=== PATIENT | female | born 1950 | race Hispanic/Latino ===

== ENCOUNTER 2018-06-25 12:11 | Emergency (ER) | payer OTHER ==
--- OUTSIDE RECORDS SUMMARY | 2018-06-25 12:19 | XMS REPORT ---
:1950 Author Organization eClinicalWorks Care Team Providers Name Role Phone Carin Wright Provider Role Unavailable Allergies, Adverse Reactions, Alerts Substance Reaction Event Type N.K.D.A. Info Not Available Non Drug Allergy Problems Problem Type Condition Code Onset Dates Condition Status Assessment Pain in right leg M79.604 Active Assessment Chest wall pain R07.89 Active Assessment Pain of left leg M79.605 Active Assessment Varicose veins of bilateral lower I83.893 Active extremities with other complications Problem Edema R60.9 Active Problem Pain of left leg M79.605 Active Problem Hyperlipidemia E78.5 Active Problem Chest wall pain R07.89 Active Problem Varicose veins of bilateral lower I83.893 Active extremities with other complications Problem Pain in right leg M79.604 Active Medications Medication Code Code Instructions Start End Status Dosage System Date Date Garlic NDC 97799944181 1000 MG Orally Active as directed Gabapentin NDC 13430136856 300 MG Orally Active 1 capsule Twice a day Tylenol # 3 NDC 0 300/30mg PO BID Active one tab PRN Lovastatin ND 54402918406 20 MG Orally Active 1 tablet Once a day with the evening meal Multivitamin ND 63660307025 - Orally Active as directed Adult Results No Known Results Summary Purpose eClinicalWorks Submission
[2018-06-25 13:40] LABS: Urine Blood NEGATIVE (NEG); Urine Glucose NEGATIVE (NEG); Urine Protein NEGATIVE (NEG); Urine Specific Gravity 1.015 (1.005-1.030)
[2018-06-25 13:59] LABS: Urine Bacteria <20 /HPF (<20); Urine RBC <5 /HPF (NONE SEEN)
[2018-06-25 14:00] LABS: Urine Amorphous Sediment 1+ /HPF (NONE SEEN); Urine Culture Reflex Order NOT NEEDED; Urine Mucus 2+ /HPF (NONE SEEN)
[2018-06-25 14:02] LABS: Absolute Monocytes 0.4 K/uL (0.1-1.3); Absolute Neutrophil 2.5 K/uL (1.8-8.0); Basophils % 0.8 % (0-1.3); Eosinophils % 6.3 % (0-4.4); Hematocrit 41.4 % (36.0-45.0); Lymphocytes % 38.1 % (15.3-44.8); MPV 9.3 fL (7.6-11.3); RBC Red Blood Cell Count 4.22 M/uL (3.86-4.86)
[2018-06-25] MEDS ORDERED: FENTANYL CITR 100 MCG/2 ML ONE (14:13)
[2018-06-25] MEDS ORDERED: ONDANSETRON 4 MG/2 ML VIAL ONE (14:14)
[2018-06-25 14:20] LABS: AST/SGOT 23 U/L (15-37); BUN Blood Urea Nitrogen 9 mg/dL (7-18); Bicarbonate 28 mmol/L (21-32); Glucose Level 104 mg/dL (74-106); Potassium 3.8 mmol/L (3.5-5.1); Sodium Level 143 mmol/L (136-145)
[2018-06-25 14:21] LABS: ALT/SGPT 41 U/L (12-78); Albumin 3.5 g/dL (3.4-5.0); Alkaline Phosphatase 95 U/L (45-117); Bilirubin Direct < 0.1 mg/dL (0-0.2); Bilirubin Total 0.3 mg/dL (0.2-1.0); Lipase 499 U/L (73-393); Protein, Total 6.9 g/dL (6.4-8.2)
--- NOTE | 2018-06-25 14:49 | RAD REPORT ---
EXAM DESCRIPTION: CTAbdomen Pelvis W Contrast - 06/25/2018 2:34 pm CLINICAL HISTORY: Abdominal pain. R side abd pain COMPARISON: No comparisons TECHNIQUE: Biphasic CT imaging of the abdomen and pelvis was performed with 100 ml non-ionic IV cont rast. All CT scans are performed using dose optimization technique as appropriate and may include automated exposure control or mA/KV adjustment according to patient size. FINDINGS: The lung bases are clear. The liver contains an 11 mm cyst in the left lobe. No aggressive liver lesion or intrahepatic biliary dilatation seen. The gallbladder contains multiple small gallstones. The spleen, adrenal glands and kidneys are within normal limits. No bowel obstruction, free air, free fluid or abscess. Several focal ventral hernia are present conta ining small sections of nonobstructive small bowel. A larger more complex inferior ventral hernia is present containing several loops of nonobstructive small bowel. The appendix is normal. No evidence of significant lymphadenopathy. Lumbosacral degenerative changes are present. IMPRESSION: Cholelithiasis is noted. Multiple ventral hernia are present containing nonobstructed small bowel loops. The largest hernia is inferiorly located below the level of the umbilicus.
--- NOTE | 2018-06-25 16:43 | ER ---
Nurse's Notes [facility] Name: Cyn Kathleen Age: 68 yrs Sex: Female : 1950 Arrival Date: 06/25/2018 Time: 12:12 Bed 28 Private MD: Diagnosis: Acute Right Sided Abdominal pain;Ventral Hernias Presentation: 06/25 12:16 Presenting complaint: Patient states: thi morning, i started having pain on the R side hj of my upper and lower abdomen, denies fever and chills, denies N/V; reports radiating pain to the R lower back;. Transition of care: patient was not received from another setting of care. Onset of symptoms was June 25, 2018. Risk Assessment: Do you want to hurt yourself or someone else? Patient reports no desire to harm self or others. Initial Sepsis Screen: Does the patient meet any 2 criteria? No. Patient's initial sepsis screen is negative. Does the patient have a suspected source of infection? No. Patient's initial sepsis screen is negative. Care prior to arrival: None. 12:16 Method Of Arrival: Ambulatory 12:16 Acuity: MONET 3 hj Triage Assessment: 12:20 General: Appears in no apparent distress. uncomfortable, Behavior is calm, cooperative, hj appropriate for age. Pain: Complains of pain in abdomen. GI: Reports lower abdominal pain, upper abdominal pain. Historical: - Allergies: 12:19 No Known Allergies; hj - Home Meds: 12:19 gabapentin 300 mg oral cap 1 cap twice a day [Active]; hj - PMHx: 12:19 None; hj - PSHx: 12:19 ; Appendectomy; Hernia repair; hj - Immunization history:: Adult Immunizations up to date. - Social history:: Smoking status: Patient/guardian denies using tobacco, Patient/guardian denies using alcohol. - Ebola Screening: : Patient negative for fever greater than or equal to 101.5 degrees Fahrenheit, and additional compatible Ebola Virus Disease symptoms Patient denies exposure to infectious person Patient denies travel to an Ebola-affected area in the 21 days before illness onset. - Family history:: not pertinent. - Hospitalizations: : No recent hospitalization is reported. Screenin:20 Abuse screen: Denies threats or abuse. Denies injuries from another. Nutritional hj screening: No deficits noted. Tuberculosis screening: No symptoms or risk factors identified. Fall Risk None identified. Assessment: 12:20 GI: Bowel sounds Abd is soft. hj 13:10 General: Appears in no apparent distress. Behavior is calm, cooperative. Pain: iw Complains of pain in right upper quadrant and right lower quadrant Pain. Neuro: Level of Consciousness is awake, alert, obeys commands, Oriented to person, place, time, situation, Moves all extremities. Full function. Cardiovascular: Patient's skin is warm and dry. Respiratory: Respiratory effort is even, unlabored, Respiratory pattern is regular. GI: Abdomen is non-distended, obese, Bowel sounds present X 4 quads. Abd is soft X 4 quads Abdomen is tender to palpation in right upper quadrant and right lower quadrant Reports lower abdominal pain, upper abdominal pain, Patient currently denies diarrhea, vomiting. : Denies burning with urination. Derm: Skin is intact, is healthy with good turgor. Musculoskeletal: Range of motion: intact in all extremities. 14:09 Reassessment: pt medicated for pain 7/10, pt c/o tightness in RLQ, pain in RLQ, pt iw lying in bed, warm blanket given, call light within reach, VSS. 16:54 Reassessment: Patient denies pain at this time. Patient states feeling better. Patient mg2 states symptoms have improved. Vital Signs: 12:21 BP 135 / 73; Pulse 73; Resp 18; Temp 97.4(O); Pulse Ox 98% on R/A; Weight 81.65 kg; hj Height 5 ft. 1 in. (154.94 cm); 14:08 BP 149 / 72; Pulse 65; Resp 16; Pulse Ox 95% on R/A; Pain 7/10; iw 15:02 BP 154 / 84; Pulse 63; Resp 18; Pulse Ox 99% on R/A; mg2 12:21 Body Mass Index 34.01 (81.65 kg, 154.94 cm) ED Course: 12:12 Patient arrived in ED. as 12:18 Triage completed. hj 12:20 Arm band placed on right wrist. hj 12:20 Patient has correct armband on for positive identification. Placed in gown. Bed in low hj position. Call light in reach. Side rails up X 1. 12:56 Jamila Herrera, RN is Primary Nurse. iw 13:00 Urine collected: clean catch specimen, clear, cielo colored, Amount Voided: 100mL. jp3 13:04 Ken Newman MD is Attending Physician. wa 13:18 Urine Microscopic Only Sent. jp3 13:45 Radiology exam delayed due to lab results not completed at this time. (BUN/Creatinine). j6 13:48 Initial lab(s) drawn, by wa, sent to lab. Inserted saline lock: 20 gauge in left iw antecubital area, using aseptic technique. Blood collected. 14:[address] jg6 14:35 CT Abd/Pelvis - W/Contrast In Process Unspecified. EDMS 15:01 No provider procedures requiring assistance completed. mg2 15:29 Jose Khan, LORNA is Primary Nurse. mg2 16:41 Jose Antonio Thompson MD is Referral Physician. wa 16:54 IV discontinued, intact, bleeding controlled, No redness/swelling at site. Pressure mg2 dressing applied. Administered Medications: 14:08 Drug: Zofran 4 mg Route: IVP; Site: left antecubital; iw 16:54 Follow up: Response: No adverse reaction; Marked relief of symptoms mg2 14:08 Drug: fentaNYL (PF) 50 mcg Route: IVP; Site: left antecubital; iw 16:54 Follow up: Response: No adverse reaction; Marked relief of symptoms mg2 Outcome: 16:42 Discharge ordered by . wy 17:00 Discharged to home ambulatory. mg2 17:00 Condition: stable 17:00 Discharge instructions given to patient, Instructed on discharge instructions, follow up and referral plans. medication usage, Demonstrated understanding of instructions, follow-up care, medications, Prescriptions given X 2. 17:01 Patient left the ED. mg2 Signatures: Dispatcher [employer] EDMS Kendal Manjarrez as Jamila Herrera, LORNA ROTHMAN Abrahan Maxwell RN RN Ken Newman MD MD wy Jose Khan RN RN [facility] Luis Alberto Calix 3 Veronica Shelton jg6 Corrections: (The following items were deleted from the chart) 12:23 12:21 Pulse 73bpm; Resp 18bpm; Pulse Ox 98% RA; Temp 97.4F Oral; 81.65 kg; Height 5 ft. hj 1 in.; BMI: 34.0; hj 15:04 15:02 Pulse 63bpm; Resp 18bpm; Pulse Ox 99% RA; mg2 mg2
--- NOTE | 2018-06-25 16:43 | EDPHYS ---
Physician Documentation [facility] Name: Cyn Kathleen Age: 68 yrs Sex: Female : 1950 Arrival Date: 06/25/2018 Time: 12:12 Bed 28 Private MD: ED Physician Ken Newman HPI: 06/25 16:36 This 68 yrs old Female presents to ER via Ambulatory with complaints of wa Abdominal Pain. 16:36 The patient presents with abdominal pain right side. Onset: The symptoms/episode wa began/occurred today. The symptoms do not radiate. Associated signs and symptoms: none. The symptoms are described as achy. Modifying factors: The symptoms are alleviated by nothing, the symptoms are aggravated by nothing. Severity of pain: At its worst the pain was moderate in the emergency department the pain is unchanged. The patient has not experienced similar symptoms in the past. The patient has not recently seen a physician. Historical: - Allergies: 12:19 No Known Allergies; hj - Home Meds: 12:19 gabapentin 300 mg oral cap 1 cap twice a day [Active]; hj - PMHx: 12:19 None; hj - PSHx: 12:19 ; Appendectomy; Hernia repair; hj - Immunization history:: Adult Immunizations up to date. - Social history:: Smoking status: Patient/guardian denies using tobacco, Patient/guardian denies using alcohol. - Ebola Screening: : Patient negative for fever greater than or equal to 101.5 degrees Fahrenheit, and additional compatible Ebola Virus Disease symptoms Patient denies exposure to infectious person Patient denies travel to an Ebola-affected area in the 21 days before illness onset. - Family history:: not pertinent. - Hospitalizations: : No recent hospitalization is reported. ROS: 16:37 Constitutional: Negative for fever, chills, and weight loss, Eyes: Negative for injury, wa pain, redness, and discharge, ENT: Negative for injury, pain, and discharge, Neck: Negative for injury, pain, and swelling, Cardiovascular: Negative for chest pain, palpitations, and edema, Respiratory: Negative for shortness of breath, cough, wheezing, and pleuritic chest pain, Back: Negative for injury and pain, : Negative for injury, bleeding, discharge, and swelling, MS/Extremity: Negative for injury and deformity, Skin: Negative for injury, rash, and discoloration, Neuro: Negative for headache, weakness, numbness, tingling, and seizure, Psych: Negative for depression, anxiety, suicide ideation, homicidal ideation, and hallucinations. 16:37 Abdomen/GI: Positive for abdominal pain, Negative for nausea, vomiting, and diarrhea. Exam: 16:37 Constitutional: This is a well developed, well nourished patient who is awake, alert, wa and in no acute distress. Head/Face: Normocephalic, atraumatic. Eyes: Pupils equal round and reactive to light, extra-ocular motions intact. Lids and lashes normal. Conjunctiva and sclera are non-icteric and not injected. Cornea within normal limits. Periorbital areas with no swelling, redness, or edema. ENT: Nares patent. No nasal discharge, no septal abnormalities noted. Tympanic membranes are normal and external auditory canals are clear. Oropharynx with no redness, swelling, or masses, exudates, or evidence of obstruction, uvula midline. Mucous membranes moist. Neck: Trachea midline, no thyromegaly or masses palpated, and no cervical lymphadenopathy. Supple, full range of motion without nuchal rigidity, or vertebral point tenderness. No Meningismus. Chest/axilla: Normal chest wall appearance and motion. Nontender with no deformity. No lesions are appreciated. Cardiovascular: Regular rate and rhythm with a normal S1 and S2. No gallops, murmurs, or rubs. Normal PMI, no JVD. No pulse deficits. Respiratory: Lungs have equal breath sounds bilaterally, clear to auscultation and percussion. No rales, rhonchi or wheezes noted. No increased work of breathing, no retractions or nasal flaring. Back: No spinal tenderness. No costovertebral tenderness. Full range of motion. Skin: Warm, dry with normal turgor. Normal color with no rashes, no lesions, and no evidence of cellulitis. MS/ Extremity: Pulses equal, no cyanosis. Neurovascular intact. Full, normal range of motion. Neuro: Awake and alert, GCS 15, oriented to person, place, time, and situation. Cranial nerves II-XII grossly intact. Motor strength 5/5 in all extremities. Sensory grossly intact. Cerebellar exam normal. Normal gait. Psych: Awake, alert, with orientation to person, place and time. Behavior, mood, and affect are within normal limits. 16:37 Abdomen/GI: Inspection: scar(s), are noted in the abdomen, Bowel sounds: normal, Palpation: soft, in all quadrants, moderate abdominal tenderness, in the right upper quadrant and right lower quadrant. Vital Signs: 12:21 BP 135 / 73; Pulse 73; Resp 18; Temp 97.4(O); Pulse Ox 98% on R/A; Weight 81.65 kg; hj Height 5 ft. 1 in. (154.94 cm); 14:08 BP 149 / 72; Pulse 65; Resp 16; Pulse Ox 95% on R/A; Pain 7/10; iw 15:02 BP 154 / 84; Pulse 63; Resp 18; Pulse Ox 99% on R/A; mg2 12:21 Body Mass Index 34.01 (81.65 kg, 154.94 cm) MDM: 13:04 Patient medically screened. il 16:38 Differential diagnosis: appendicitis, cholecystitis, Cholelithiasis, non-specific abd wa pain, pancreatitis, Pyelonephritis, Ureterolithiasis, urinary tract infection. 16:39 Data reviewed: vital signs, nurses notes. Test interpretation: by ED physician or il midlevel provider: labs noted with lipase of 499. otherwise wnl. . Test interpretation: by ED physician or midlevel provider: CT: multiple ventral hernias. no obstruction. Response to treatment: the patient's symptoms have markedly improved after treatment. 16:40 ED course: suspect pain due to ventral hernia. tender within the location of abd wall wa scars. no obstruction on CT however. pain imrpoved. 06/25 12:22 Order name: Urine Microscopic Only; Complete Time: 14:57 06/25 13:27 Order name: Urine Dipstick--Ancillary (enter results); Complete Time: 14:57 06/25 13:41 Order name: Basic Metabolic Panel il 06/25 13:41 Order name: CBC with Diff; Complete Time: 14:56 il 06/25 14:56 Interpretation: RDW 13.7. il 06/25 13:41 Order name: Hepatic Function il 06/25 13:41 Order name: Lipase il 06/25 12:22 Order name: Urine Dipstick-Ancillary (obtain specimen); Complete Time: 13:18 06/25 13:41 Order name: IV Saline Lock; Complete Time: 14:08 il 06/25 13:41 Order name: CT Abd/Pelvis - W/Contrast; Complete Time: 14:57 [place] 06/25 13:41 Order name: Basic Metabolic Panel; Complete Time: 14:57 [facility] 06/25 13:41 Order name: Liver (Hepatic) Function; Complete Time: 16:18 [facility] 06/25 13:41 Order name: Lipase; Complete Time: 14:56 [facility] 06/25 13:41 Order name: Labs collected and sent; Complete Time: 14:08 il Administered Medications: 14:08 Drug: Zofran 4 mg Route: IVP; Site: left antecubital; iw 16:54 Follow up: Response: No adverse reaction; Marked relief of symptoms mg2 14:08 Drug: fentaNYL (PF) 50 mcg Route: IVP; Site: left antecubital; iw 16:54 Follow up: Response: No adverse reaction; Marked relief of symptoms mg2 Disposition: 06/25/18 16:42 Discharged to Home. Impression: Acute Right Sided Abdominal pain, Ventral Hernias. - Condition is Stable. - Discharge Instructions: Abdominal Pain, Adult, [id number], Ventral Hernia. - Prescriptions for Zofran 4 mg Oral Tablet - take 1 tablet by ORAL route every 12 hours As needed; 20 tablet. Tramadol 50 mg Oral Tablet - take 1 tablet by ORAL route every 8 hours as needed; 12 tablet. - Medication Reconciliation Form, Thank You Letter, Antibiotic Education, Prescription Opioid Use form. - Follow up: Jose Antonio Thompson MD; When: 1 - 2 days; Reason: Recheck today's complaints. - Problem is new. - Symptoms have improved. - Notes: take medication as prescribed. see the surgeon prescribed you for further evalaution of hernias on the abdominal wall. return here if any worsening pain or concerns immediately Signatures: Dispatcher [employer] EDMS Jamila Herrera RN RN Abrahan Maxwell RN RN Ken Newman MD MD wa Gardose, Michele, RN RN mg2 Corrections: (The following items were deleted from the chart) 17:01 16:42 06/25/2018 16:42 Discharged to Home. Impression: Acute Right Sided Abdominal mg2 pain; Ventral Hernias. Condition is Stable. Forms are Medication Reconciliation Form, Thank You Letter, Antibiotic Education, Prescription Opioid Use. Follow up: Jose Antonio Thompson; When: 1 - 2 days; Reason: Recheck today's complaints. Problem is new. Symptoms have improved. wa
== END 2018-06-25 17:01 | disposition home or self-care (01) ==
LOC: ER 12:11
DX: K43.9 Ventral hernia without obstruction or gangrene (principal)
CPT/HCPCS: 85025; 80048; 36415; 80076; 83690; 74177; 96375; 96374; 99284; Q9967; J3010; J2405; 81003; 81015

== ENCOUNTER 2018-07-18 07:26 | Observation (INO) | payer OTHER ==
--- OUTSIDE RECORDS SUMMARY | 2018-07-18 07:31 | XMS REPORT ---
[...] Status Dosage System Date Date Garlic NDC 98015224732 1000 MG Orally Active as directed Gabapentin NDC 13518752888 300 MG Orally Active 1 capsule Twice a day Tylenol # 3 NDC 0 300/30mg PO BID Active one tab PRN Lovastatin ND 49725382770 20 MG Orally Active 1 tablet Once a day with the evening meal Multivitamin ND 13334932651 - Orally Active as directed Adult Results No Known Results Summary Purpose eClinicalWorks Submission
--- OUTSIDE RECORDS SUMMARY | 2018-07-18 07:31 | XMS REPORT ---
:1950 Author Organization eClinicalWorks Care Team Providers Name Role Phone Jose Antonio Thompson Provider Role Unavailable Allergies, Adverse Reactions, Alerts Substance Reaction Event Type N.K.D.A. Info Not Available Non Drug Allergy Problems Problem Type Condition Code Onset Dates Condition Status Assessment Ventral hernia without obstruction K43.9 Active or gangrene Problem Hyperlipidemia E78.5 Active Problem Edema R60.9 Active Problem Abdominal pain, unspecified R10.9 Active abdominal location Problem Pain in right leg M79.604 Active Problem Chest wall pain R07.89 Active Problem Pain of left leg M79.605 Active Problem Varicose veins of bilateral lower I83.893 Active extremities with other complications Medications Medication Code Code Instructions Start End Date Status Dosage System Date Lovastatin ND 86639904798 20 MG Orally Active 1 tablet Once a day with the evening meal Gabapentin ND 33368997599 300 MG Orally Active 1 capsule Twice a day Tylenol # 3 NDC 0 300/30mg PO BID Active one tab PRN Multivitamin ND 48083689634 - Orally Active as directed Adult Tylenol # 3 NDC 0 300/30mg PO July Active one tab every 6 hrs 2018 Garlic ND 05489705550 1000 MG Orally Active as directed Results No Known Results Summary Purpose eClinicalWorks Submission
--- OUTSIDE RECORDS SUMMARY | 2018-07-18 07:31 | XMS REPORT ---
:1950 Author Organization eClinicalWorks Care Team Providers Name Role Phone Kyle Carin Provider Role Unavailable Allergies, Adverse Reactions, Alerts Substance Reaction Event Type N.K.D.A. Info Not Available Non Drug Allergy Problems Problem Type Condition Code Onset Dates Condition Status Assessment Abdominal pain, unspecified R10.9 Active abdominal location Assessment Hyperlipidemia E78.5 Active Assessment Pain in right leg M79.604 Active Assessment Pain of left leg M79.605 Active Assessment Varicose veins of bilateral lower I83.893 Active extremities with other complications Assessment Edema R60.9 Active Problem Hyperlipidemia E78.5 Active Problem Edema R60.9 Active Problem Abdominal pain, unspecified R10.9 Active abdominal location Problem Pain in right leg M79.604 Active Problem Chest wall pain R07.89 Active Problem Pain of left leg M79.605 Active Problem Varicose veins of bilateral lower I83.893 Active extremities with other complications Medications Medication Code Code Instructions Start End Date Status Dosage System Date Multivitamin [facility] 73050853967 - Orally Active as directed Adult Tylenol # 3 NDC 0 300/30mg PO July Active one tab every 6 hrs 2018 Tylenol # 3 NDC 0 300/30mg PO BID Active one tab PRN Lovastatin ND 97901117780 20 mg Orally Active 1 tablet Once a day with the evening meal Gabapentin ND 09191554277 300 MG Orally Active 1 capsule Twice a day Garlic ND 23602455602 1000 MG Orally Active as directed Results No Known Results Summary Purpose eClinicalWorks Submission
[2018-07-18] MEDS ORDERED: CEFAZOLIN/SWI 2gm 2 GM/20 ML SYR ONE (07:56)
[2018-07-18] MEDS ORDERED: Ringers Lactate 1,000 ML IV ONE ×3 (07:56→12:31)
[2018-07-18] MEDS ORDERED: PROPOFOL 200 MG/20 ML VIAL IV ONE (08:01)
[2018-07-18] MEDS ORDERED: MIDAZOLAM HCL 2 MG/2 ML INJ ONE (08:02)
[2018-07-18] MEDS ORDERED: LIDOCAINE 2% MPF 5 ML VIAL ONE (08:02)
[2018-07-18] MEDS ORDERED: ROCURONIUM 50 MG/5 ML VIAL IV ONE (08:02)
[2018-07-18] MEDS ORDERED: FENTANYL CITR 250 MCG/5 ML ONE (08:02)
[2018-07-18] MEDS ORDERED: ONDANSETRON 4 MG/2 ML VIAL ONE (08:03)
[2018-07-18] MEDS ORDERED: BUPIVACA 0.25%/EPI 0.0005% MDV 50 ML VIAL ONE (08:05)
[2018-07-18] MEDS ORDERED: EPHEDRINE SULF 50 MG/ML VIAL ONE (08:54)
[2018-07-18] MEDS ORDERED: FENTANYL CITR 100 MCG/2 ML ONE (12:59)
--- NOTE | 2018-07-18 13:17 | P.OP ---
Preoperative diagnosis: Complex Ventral Abdominal Wall Hernia Postoperative diagnosis: Complex Ventral Abdominal Wall Hernia Primary procedure: Laparoscopic Adhesiolysis >3 hours Secondary procedure: Laparoscopic Ventral Hernia Repair with Mesh Anesthesia: GETA + Local Estimated blood loss: <10cc Specimen: None Findings: [place] cheese abdomen, multiple loops of small bowel stuck to old mesh Complications: None Implants: [id number] [employer] Ventralite ST mesh with echo positioning system Transferred to: Recovery Room Condition: Good
[2018-07-18] MEDS ORDERED: KETOROLAC 30 MG/ML INJ ONE (13:19)
[2018-07-18] MEDS ORDERED: HYDROMORPHONE HCL 1 MG/ML INJ IV PRN (13:24)
[2018-07-18] MEDS: MORPHINE 4 MG/ML SYR ONE ×4 (13:47→14:07)
[2018-07-18] MEDS ORDERED: GLUCAGON 1 MG/VIAL IM PRN (14:06)
[2018-07-18] MEDS ORDERED: D50W 25 GM/50 ML SYRINGE IV PRN (14:06)
[2018-07-18] MEDS: HYDROMORPHONE HCL 2 MG/ML inj ONE ×2 (14:13→14:18)
[2018-07-18 14:58] VITALS: BMI 39.9
[2018-07-18] MEDS: Ringers Lactate 1,000 ML IV SCH (15:51)
[2018-07-18] MEDS ORDERED: PNEUMOCOCCAL VACCINE 0.5 ML IMVAC ONE (16:00)
[2018-07-18] MEDS: INSULIN -REGULAR HUMAN 50 UNIT/0.5 ML ML SQ SCH ×2 (16:30→20:06)
[2018-07-18] MEDS: CEFAZOLIN/SWI 1gm 1 GM/10 ML SYR IVP SCH (17:54)
[2018-07-18 19:48] LABS: Urine Appearance CLEAR; Urine Bilirubin NEGATIVE (NEG); Urine Blood NEGATIVE (NEG); Urine Color YELLOW; Urine Glucose TRACE (NEG); Urine Protein NEGATIVE (NEG); Urine Specific Gravity 1.015 (1.005-1.030); Urine Urobilinogen 0.2 mg/dL (0.2-1.0)
[2018-07-18 19:51] LABS: Urine Microscopic Reflex NO UMIC
[2018-07-18] MEDS: HYDROCODONE/APAP 7.5/325 MG TAB PO PRN (20:03)
--- NOTE | 2018-07-19 00:09 | OP ---
Date of Procedure: 07/18/2018 Surgeon: Jose Antonio Thompson MD, Preoperative Diagnosis: Complex ventral abdominal hernia. Postoperative Diagnosis: Complex ventral abdominal hernia. Procedure Performed: 1.Laparoscopic adhesiolysis, greater than 3 hours. 2.Laparoscopic ventral hernia repair with mesh. Anesthesia: General endotracheal plus local with 0.25% Marcaine with epinephrine. Estimated Blood Loss: Less than 10 cc. Specimen: None. Findings: 1.Complex ventral abdominal wall hernias, multiple, from previous surgery. The patient had previous mesh placed. The small bowel was firmly adherent to this mesh in multiple locations requiring an ex tensive and meticulous adhesiolysis using both sharp and blunt dissection. 2.Indonesian-cheese abdomen appearance of approximately 15 cm x 20 cm, containing multiple loops of small bowel as well, firmly adherent with thick fibrous adhesions in close apposition to the hernia defect . Complications: None. Implants: A 20 x [address] mesh with Echo Positioning System. Disposition: Transferred to recovery room in good condition. Procedure In Detail: After informed consent was obtained, the patient was brought to the operating r oom, prepped and draped in the usual sterile fashion. After adequate anesthesia was achieved, an inc ision was made over the right upper quadrant. This area was anesthetized and a 5-mm 0-degree optical trocar was introduced in the abdomen without evidence of complication. Insufflation was obtained to 15 mmHg at this time. There was no injury to vital structures upon entry into the abdomen. Signifi cant adhesions were noted all throughout the abdomen at this point. A small window was visualized to the left upper quadrant. A 5-mm trocar was placed under direct visualization in the left lower quad rant at this point and the EnSeal device used to take down the falciform ligament and some of the ant erior abdominal wall adhesions using both blunt dissection as well as the LigaSure device. The disse ction was continued down on the left side of the abdomen. Two additional trocars were placed at this time, a 12 mm in the left mid abdomen and 1 in the left lower quadrant, this was a 5 mm. An additio nal 5-mm trocar was placed in the right lower quadrant under direct visualization without evidence of complication. All trocars were placed under direct visualization without evidence of complication. A total of 5 trocars were placed, one 12 mm and four 5 mm were placed. After all trocars placed, th e patient was positioned in multiple different ways and an extensive adhesiolysis was performed for g reater than 3 hours doing meticulous dissection and finding multiple loops of small bowel firmly adhe rent with thick fibrous adhesions to the multiple [id number] hernia appearance to the anterior abdominal wall. This was a complex hernia requiring meticulous dissection as the small bowel was in close apposition to the hernia defect. No enterotomies were appreciated throughout the entire proce dure, however. Additionally, the small bowel was found to be firmly adherent to previously placed me sh in the pelvis and this required an additional meticulous dissection to remove this. After this wa s performed, all the small bowel was inspected at this time, which was handled at this time. The are a was copiously irrigated and the bowel was palpated to see if there was any evidence of leakage, non e was appreciated at this time. The much of the effluent was suctioned back out. At this time, a Ba rd Ventralight ST mesh was sized appropriately, and a 20 x [address] mesh with Echo P ositioning System was brought in through the 12-mm trocar, positioned appropriately through the centr al positioning device from a separate stab incision in the periumbilical region and inflated and depl oyed at this time. At this time, the absorbable fixation tacks were placed in a crown at this time. The deployment device was then removed in its entirety and verified on the back table. A second microbiology teacher wn was then placed using absorbable fixation and a third row was placed as well using a total of 90 a bsorbable fixation tacks to the anterior abdominal wall with good approximation. The abdomen was the n partially desufflated under direct visualization without evidence of complication. The remainder o f the effluent was suctioned out and the left abdominal wall 12-mm trocar was removed and the trocar site was closed with a Gómez-Ophelia suture passer with 0 Vicryl in interrupted fashion with good a pproximation of tissues. All skin incisions were then inspected at this time and they were found to be good with trocars in place. The abdomen was completely desufflated under direct visualization wit hout evidence of complication. All trocars were then removed. All skin incisions were copiously irr igated and closed with interrupted osito and a sterile dressing was placed over top. The patient t olerated the procedure well without evidence of complication, has abdominal binder placed. She nilda ated the procedure well without evidence of complication, transferred to the PACU in good condition. All counts were correct at the end of the case. ROLAND/MIRTA Voice ID: [id number] Report ID: [id number]
[2018-07-19] MEDS: CEFAZOLIN/SWI 1gm 1 GM/10 ML SYR IVP SCH ×3 (00:16→11:42)
[2018-07-19] MEDS: Ringers Lactate 1,000 ML IV SCH ×2 (00:17→10:00)
[2018-07-19] MEDS: HYDROCODONE/APAP 7.5/325 MG TAB PO PRN ×3 (04:00→13:29)
[2018-07-19 05:49] LABS: Absolute Lymphocytes (CBC) 1.1 K/uL (0.7-4.9); Absolute Monocytes 0.6 K/uL (0.1-1.3); Absolute Neutrophil 5.3 K/uL (1.8-8.0); Basophils % 0.3 % (0-1.3); Eosinophils % 0.5 % (0-4.4); Lymphocytes % 15.7 % (15.3-44.8); MPV 9.1 fL (7.6-11.3); Monocytes % 8.9 % (3.3-12.3); RBC Red Blood Cell Count 3.95 M/uL (3.86-4.86)
[2018-07-19] MEDS ORDERED: TRAMADOL HCL 50 MG TAB PO PRN (07:11)
[2018-07-19] MEDS: INSULIN -REGULAR HUMAN 50 UNIT/0.5 ML ML SQ SCH ×2 (07:30→11:30)
--- NOTE | 2018-07-19 08:28 | P.DS ---
Admission Date: 07/18/18 Discharge Date: 07/19/18 Disposition: ROUTINE DISCHARGE Discharge Condition: GOOD Consultations: hospitalist Procedures: Laparoscopic ventral hernia repair with mesh, and Laparoscopic adhesiolysis >3 hours Brief History of Present Illness: Patient has history of multiple abdominal surgeries, and abdominal hernia repairs with mesh, multiple obstructive episodes, and multiple ventral abdominal wall hernias, she had laparoscopic adhesiolysis >3 hours, with ventral hernia repair Hospital Course: did well post op, normal post op pain, labs, vitals all good, pain level appropriate tolerating liquids well, good appetite Vital Signs/Physical Exam: Temp Pulse Resp BP Pulse Ox 97.4 F 89 20 129/62 94 07/19/18 04:00 07/19/18 04:00 07/19/18 04:00 07/19/18 04:00 07/19/18 04:00 Laboratory Data at Discharge: WBC 7.1 K/uL (4.3-10.9) 07/19/18 05:29 Hgb 12.9 g/dL (12.0-15.0) 07/19/18 05:29 Hct 39.0 % (36.0-45.0) 07/19/18 05:29 Plt Count 152 K/uL (152-406) 07/19/18 05:29 Home Medications: Calcium Carbonate [Calcium] 500 mg PO DAILY 07/16/18 Gabapentin 300 mg PO DAILY 07/16/18 Multivit-Min/FA/Lycopen/Lutein [Centrum Silver Tablet] 1 mg PO DAILY 07/16/18 Tramadol HCl [Ultram] 50 mg PO DAILY 07/16/18 Vit E/Vit E Mx/Squal/Phytostrl [Mixed Tocotrienols 50 mg Sftgl] 1 mg PO DAILY Lovastatin 1 tab PO BEDTIME 07/18/18 Diet: Regular Activity: No lifting more than 10 lbs Followup: Jose Antonio Thompson MD [ACTIVE - CAN ADMIT] -
[2018-07-19] MEDS ORDERED: [UNRECOGNIZED DRUG - MIXTURE] PO SCH (09:00)
[2018-07-19] MEDS ORDERED: GABAPENTIN 300 MG CAP PO SCH (09:00)
[2018-07-19] MEDS ORDERED: MULTIVIT W/ MINERAL TAB PO SCH (09:00)
--- NOTE | 2018-07-19 09:59 | P.CNS ---
Date of Consult: 07/19/18 Reason for Consult: Medical Management Requesting Physician: Jose Antonio Thompson Primary Care Provider: Dr. Pierson Chief Complaint: Postop surgery History of Present Illness: 68-year-old female presented to the hospital for outpatient ventral hernia repair. Patient had surgery yesterday by surgery. Patient tolerated procedure well. I was consulted for medical management. Patient with only history of hyperlipidemia, neuropathy and arthritis. Patient stable this time. Patient without significant abdominal pain. Patient tolerating current diet. Allergies No Known Allergies Allergy (Verified 07/16/18 13:29) Home medications list reviewed: Yes Home Medications: Calcium Carbonate [Calcium] 500 mg PO DAILY 07/16/18 Gabapentin 300 mg PO DAILY 07/16/18 Multivit-Min/FA/Lycopen/Lutein [Centrum Silver Tablet] 1 mg PO DAILY 07/16/18 Tramadol HCl [Ultram] 50 mg PO DAILY 07/16/18 Vit E/Vit E Mx/Squal/Phytostrl [Mixed Tocotrienols 50 mg Sftgl] 1 mg PO DAILY Lovastatin 1 tab PO BEDTIME 07/18/18 - Past Medical/Surgical History Diabetic: No -: Hyperlipidemia -: Arthritis -: Neuropathy -: Obesity, BMI 40 -: appendectomy -: -: hernia surgeries Psychosocial/ Personal History: Patient is - Family History Father History Unknown: Yes Mother History Unknown: Yes - Social History Smoking Status: Never smoker Alcohol use: No CD- Drugs: No Caffeine use: Yes Place of Residence: Home Review of Systems General: As per HPI Eyes: Unremarkable ENT: Unremarkable Respiratory: Unremarkable Cardiovascular: Unremarkable Gastrointestinal: As per HPI Genitourinary: Unremarkable Musculoskeletal: Unremarkable Integumentary: Unremarkable Neurological: Unremarkable Lymphatics: Unremarkable Physical Examination Temp Pulse Resp BP Pulse Ox 97.9 F 72 18 131/63 93 07/19/18 08:00 07/19/18 08:00 07/19/18 08:00 07/19/18 08:00 07/19/18 08:00 General: Alert, In no apparent distress, Oriented x3, Cooperative HEENT: Atraumatic, Normocephalic, Mucous membr. moist/pink Neck: Supple, No Thyromegaly Respiratory: Clear to auscultation bilaterally, Normal air movement Cardiovascular: Normal pulses, Regular rate/rhythm Gastrointestinal: Normal bowel sounds, Soft and benign, Non-distended, Other ( Postsurgical changes noted) Musculoskeletal: No erythema, No tenderness, No warmth Integumentary: No erythema, No warmth, No cyanosis Neurological: Normal speech, Normal strength at 5/5 x4 extr, Normal tone, Normal affect Laboratory Data (last 24 hrs) 07/19/18 05:29: WBC 7.1, Hgb 12.9, Hct 39.0, Plt Count 152 Conclusions/Impression: Impression: Ventral hernia status post ventral hernia repair with lysis of adhesions Hyperlipidemia Arthritis with neuropathy Obesity, BMI 40 Plan: Patient medically stable at this time. No need for further adjustment in her medication. Patient may continue with her current meds for hyperlipidemia, arthritis and neuropathy. Case discussed with surgery. Surgery plans discharge patient today. Continue with plan of care. Recommend to follow up with her PCP within 1-2 weeks to follow up this hospitalization and continue her care. Time Spent Managing Pts care (In Minutes): 55
[2018-07-19 11:26] VITALS: O2SAT 93
[2018-07-19 13:07] VITALS: BP 128/61; TEMP 98.4
[2018-07-19] MEDS ORDERED: ATORVASTATIN 10 MG TAB PO SCH (21:00)
== END 2018-07-19 16:36 | disposition home or self-care (01) ==
LOC: OR 07:26 → 2ND 13:41 → INTOOBSV 13:41
PROVIDERS: ADMIT Surgery; ATTEND Surgery
PROC: 0DNU4ZZ Release Omentum, Percutaneous Endoscopic Approach (ICD-10-PCS; 2018-07-18)
PROC: 0WUF4JZ Supplement Abdominal Wall with Synthetic Substitute, Percutaneous Endoscopic Approach (ICD-10-PCS; principal; 2018-07-18 08:30)
DX: K43.9 Ventral hernia without obstruction or gangrene (principal); K66.0 Peritoneal adhesions (postprocedural) (postinfection); E78.5 Hyperlipidemia, unspecified; E66.9 Obesity, unspecified; Z68.41 Body mass index [BMI] 40.0-44.9, adult; Z23 Encounter for immunization
CPT/HCPCS: 87088; 85025; 36415; 82962 ×5; 81003; 90670; 97116; 97163; 49652; 49329; J2704; J2250; J1170 ×2; J3010 ×2; J0690 ×2; J2405; G0379; G0009; G0378; 87086